=== PATIENT | female | born 1965 | race Caucasian/White ===

== ENCOUNTER 2016-12-19 14:05 | Inpatient (IN) | payer MEDICARE, MEDICAID ==
[~2016-12-19] VITALS: Ht 154.9 cm; Wt 81.4 kg
--- NOTE | ~2016-12-19 | DS ---
PATIENT'S NAME: NIKA CLIFTON [facility] AGE: 51 Y [address] ROOM: [id number] [place], [place] [address] LOCATION: GI ADMIT DATE: 12/19/2016 Discharge Summary DISCHARGE DATE: 12/24/2016 FAMILY PHYSICIAN: Alex Posada ATTENDING PHYSICIAN: Rigoberto Kraft DISCHARGE DIAGNOSES: 1. Left middle cerebral artery acute ischemic infarct. 2. Left internal carotid artery stenosis, 90%. 3. Patent foramen ovale. 4. Coronary artery disease. 5. Diabetes mellitus type 2. 6. Ischemic cardiomyopathy, ejection fraction of 35%. 7. Medication noncompliance. 8. Bipolar. HOSPITAL COURSE: Please refer to admitting history and physical as dictated by Dr. Kraft. Briefly, the patient was admitted to [facility], where she was found to have right-sided weakness and expressive aphasia. She was outside of the window for tPA. MRI was performed, which did show an acute ischemic infarct in the left MCA territory. CTA of her head and neck was performed, which revealed 90% stenosis of the left ICA. Dr. Caldwell did recommend CT scan and surgery in 2 weeks. Echo was performed, which had a positive bubble study, suggestive of PFO. Cardiology did follow her. She was noted to have hypertension. Her home Lopressor and Norvasc were resumed on the day of transfer to rehab. For her left MCA stroke, she was placed on aspirin, statin, and Plavix. Speech Therapy, Occupational Therapy, and Physical Therapy followed her throughout her stay. Her hemoglobin A1c was found to be 12 upon admit. Her insulin regimen was adjusted throughout her stay. With her history of bipolar, her home Seroquel was resumed. The patient gradually improved. Her expressive aphasia improved. On the day of discharge, her blood pressure was elevated in the morning, however, her blood pressure medications were resumed. It was 127/71 at the time of transfer. She was stable on room air at 96%. On 12/24/2016, it was felt as though she was stable to be discharged to [facility] Inpatient Rehab for further restorative cares. LABORATORY DATA: Sodium remained stable, potassium 3.2 to 3.6, BUN 9 to 13, creatinine 0.7 to 0.80. GFR greater than 60. Mag 1.9. Total cholesterol 175, triglycerides 224, HDL 36, and LDL 95. CPK 66, CK-MB less than 0.5, and troponin was elevated upon admit at 1.470. It trended down throughout her stay to 0.908. ProBNP 603. Hemoglobin A1c 12.7. TSH 3.1. WBC 6.7, hemoglobin 14.1, and hematocrit 41.5. Leukocytes 100, nitrites positive, wbc's 5 to 10, and bacteria many. PATIENT'S NAME: NIKA CLIFTON [facility] AGE: 51 Y [address] ROOM: [address] [address] LOCATION: GICU ADMIT DATE: 12/19/2016 Discharge Summary DISCHARGE DATE: 12/24/2016 FAMILY PHYSICIAN: Alex Posada ATTENDING PHYSICIAN: Rigoberto Kraft RADIOLOGY REPORT: CTA of the head and neck shows evolving ischemic infarct in the left MCA territory, high-grade stenosis greater than 90% at and immediately above the left internal carotid, occlusion of the right vertebral artery at the level of the skull. No aneurysm identified. Prominent left posterior communicating artery, likely reflecting collateral flow from the posterior circulation. MRI of the brain, large area of abnormal restricted diffusion at the left cerebral hemisphere involving portions of the left temporal and parietal lobe. Additional areas of abnormal or restricted diffusion at the basal ganglia in the left and medial left temporal lobe. DISCHARGE INSTRUCTIONS: The patient will be discharged to [facility] inpatient Rehab. Dr. Savage to follow. Follow up with Dr. Caldwell in [address] stroke [address] scan and further need for surgery. Diet ADA. Weightbearing as tolerated with assistance. PT, OT, and ST to evaluate and treat as indicated. Oxygen as needed to keep sats greater than 90%. Accu- Cheks a.c. and bedtime. Rehab potential is good. Discharge potential is good. DISCHARGE MEDICATIONS: 1. Aspirin 81 mg p.o. daily. 2. Lipitor 80 mg p.o. daily. 3. Plavix 75 mg p.o. daily. 4. NovoLog insulin 2 units per 15 g of carbs with meals. 5. Mild sliding scale NovoLog insulin. 6. Levemir 25 units subcu every morning. 7. Levemir 20 units subcu every evening. 8. Protonix 40 mg p.o. daily. 9. Tylenol 650 mg p.o. every 4 hours as needed for pain. 10. Dextrose 50%, 25 mL for hypoglycemia p.r.n. 11. Glucagon 1 mg subcu for hypoglycemia protocol. 12. Glucose 16 g p.o. for hypoglycemia p.r.n. 13. Glucophage 1000 mg p.o. twice daily with meals. 14. Seroquel 200 mg p.o. every night at bedtime for bipolar. 15. Vasotec 5 mg p.o. twice daily. 16. Lopressor 25 mg p.o. twice daily. Hold if systolic blood pressure is less than 100 or heart rate less than 60. 17. Norvasc 2.5 mg p.o. daily. Hold if systolic blood pressure is less than 110. 18. Nystatin powder apply under right breast three times daily. 19. Nicotine patch 21 mg transdermal daily p.r.n. Thank you for allowing us to participate in the care of this patient, as she PATIENT'S NAME: NIKA CLIFTON [facility] AGE: 51 Y [address] ROOM: [address] [address] LOCATION: [facility] ADMIT DATE: 12/19/2016 Discharge Summary DISCHARGE DATE: 12/24/2016 FAMILY PHYSICIAN: Alex Posada ATTENDING PHYSICIAN: Rigoberto Kraft has been hospitalized at [facility]. RIANA NUNEZ APRN FOR MD MEKA HUYNH/taj /[id number] d: 12/25/16249 t: 12/29/16 1653, DISCHARGE SUMMARY
--- NOTE | ~2016-12-19 | HP ---
PATIENT'S NAME: WICHITA [facility] AGE: 51 Y [address] ROOM: [place] [address] LOCATION: GICU ADMIT DATE: 12/19/2016 History & Physical DISCHARGE DATE: FAMILY PHYSICIAN: Alex Posada ATTENDING PHYSICIAN: LISA HWANG DATE OF SERVICE: CHIEF COMPLAINT: Acute stroke. HISTORY OF PRESENT ILLNESS: A 51-year-old lady with a past medical history of coronary artery disease with a recent drug-eluting stent to LAD as well as circumflex back in July, insulin-dependent diabetes mellitus, fibromyalgia, current smoker presented to the [place] [facility] with aphasia. Most of the history was obtained from the daughter who noticed right-sided weakness last night, but she was speaking at that time, but this morning she became aphasic and she was brought to the [place] [facility] where a CAT scan was done, which did show a left-sided MCA territory stroke. As the weakness started last night, she was outside window as well as she was on aspirin as well as Plavix for her drug-eluting stents. She was transferred here for further medical care. On my encounter, she is aphasic but appears to be alert and oriented. She is shaking her head yes or no to the answers appropriately. She denied having any chest pain. When asked about the onset of the weakness, she could not tell. She pointed that she is not able to speak, but she at this point does not have weakness in the arm or the leg. She denied any abdominal pain, any constipation, any diarrhea at this time. She also denied dizziness or headache. REVIEW OF SYSTEMS: All other systems reviewed and were negative except what is mentioned in the HPI. PAST MEDICAL HISTORY: Coronary artery disease with a drug-eluting stent to LAD in June and then circumflex in July; insulin-dependent diabetes mellitus; fibromyalgia; smoking; heart failure with preserved ejection fraction, last known ejection fraction 45%. MEDICATIONS: Please see MAR. FAMILY HISTORY: Family history positive for myocardial infarction in father who at the PATIENT'S NAME: WICHITA [facility] AGE: 51 Y [address] ROOM: [place] [address] LOCATION: GI ADMIT DATE: 12/19/2016 History & Physical DISCHARGE DATE: FAMILY PHYSICIAN: Alex Posada ATTENDING PHYSICIAN: LISA HWANG age of 57. Mother had diabetes. SOCIAL HISTORY: The patient is a half pack smoker for the last 25 years. 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 No alcohol or drug abuse. ALLERGIES: THE PATIENT IS ALLERGIC TO WELLBUTRIN AND CHANTIX. PHYSICAL EXAMINATION: VITAL SIGNS: Blood pressure 148/76, 16, 55, afebrile. GENERAL: No acute distress. Alert and oriented x3. HEENT: Head: Atraumatic, normocephalic. Eyes: Nonicteric. No pallor. Oropharynx: Moist mucous membranes. CARDIOVASCULAR: S1, S2. No murmurs, gallops, or rubs. LUNGS: Clear to auscultation bilaterally. ABDOMEN: Soft, nontender, nondistended. Bowel sounds are present. EXTREMITIES: No clubbing, cyanosis, or edema. NEURO: Right-sided facial droop is noted. Tongue deviation is noted. Right upper and lower extremity power is 4/5 as compared to 5/5 in left upper and lower extremity. MUSCULOSKELETAL: No muscle tenderness noted. No joint swelling noted. LYMPHATICS: No lymphangitis or adenopathy noted. ENDOCRINE: No cushingoid features present. No thyromegaly present. LABORATORY DATA: CAT scan from the outside facility as mentioned in the HPI showed left MCA territory stroke. Remarkable labs from the outside facility showed a troponin level of 1.734. EKG was done which showed normal sinus rhythm with Q-waves in anterior leads which were present on the previous EKG as well. No other significant acute ST- T wave changes were present. ASSESSMENT: 1. Acute ischemic stroke. 2. Elevated troponins. 3. History of coronary artery disease, status post drug-eluting stents in June as well as July. 4. Insulin-dependent diabetes mellitus. 5. Fibromyalgia. 6. Tobaccoism. PLAN: PATIENT'S NAME: NIKA CLIFTON [facility] AGE: 51 Y [address] ROOM: [id number] [place], [place] [address] LOCATION: [facility] ADMIT DATE: 12/19/2016 History & Physical DISCHARGE DATE: FAMILY PHYSICIAN: Alex Posada ATTENDING PHYSICIAN: LISA HWANG We are going to admit this patient to the Neuro Trauma Unit. Per Neurology recommendation, we are going to get MRI of the brain with and without contrast. We will also get a CT angiogram of the head and neck. Cardiology has been consulted for an echocardiography today and a possibility of transesophageal echocardiography given it could be very likely a cardioembolic in nature stroke. We are going to monitor the troponin elevation which is very likely related to the stroke rather than primary cardiac etiology. We are going to consult Cardiology for transesophageal echocardiography as well as to give the assessment on this troponin levels as well. Aspirin, Plavix, and statins will be resumed. N.p.o. until bedside swallowing evaluation is done. We will consult Inpatient Rehab. SCDs for DVT prophylaxis today, which can be switched to chemical prophylaxis per Neurology recommendations. We will reduce the home dose of insulin detemir given her n.p.o. status here and monitor blood glucose level and titrate insulin as necessary. The patient is full code. MD IRINEO BEYER/taj /[id number] D: 634 T: 829 HISTORY & PHYSICAL
--- NOTE | ~2016-12-19 | ECHO ---
Transthoracic Echocardiography Report (TTE) Demographics Patient Name NIKA CLIFTON Date of Study 12/19/2016 Patient Number [id number] Visit Number [id number] Date of 1965 Room Number G6228 Gender Female Number Age 51 year(s) Referring Swetha Liu Tap Grinder Mike Steele RDCS, Physician ALEXANDER RVT Abena Wilson MD Physician Interpreting Britton Hong Underground Mining Section Foreman Physician Ashleigh HILLMAN Supervising Ordering Abena Wilson MD/MLP Physician Nurse Stress Card Lacer Conclusions Contractility Score Summary At rest the following contractility abnormalities were noted: Hypokinesis of the Mid marcos-lateral, the Mid anterior, the Mid infero-septal, the Mid inferior, the Mid infero-lateral, the Apical inferior, the Apical lateral and the Basal anterior segments; Akinesis of the Mid marcos-septal, the Apical septal, the Basal marcos-septal, the Apical anterior and the Apical cap segments. Contractility of all other segments appeared normal. Summary The estimated left ventricular ejection fraction is 35%. Mild concentric left ventricular hypertrophy. Diastolic assessment reveals Grade I diastolic dysfunction. Informed consent was obtained, few bubble study was done, bubbles crossed to the left atrium suggesting a PFO . Mild mitral regurgitation by color Doppler. Procedure Type of Study TTE procedure:2D Echocardiogram. Procedure Date Date: 12/19/2016 Start: 03:59 PM Study Location: Inpatient Portable Technical Quality: Adequate visualization Indications:CVA. Appropriate Use Criteria: 9 Patient Status: STAT Contrast Medium: Bubble Study. HR: 73 bpm BP: 153/95 mmHg Allergies - Other:(Wellbutrin, Chantix). - Other:(buproprion, vareniciline). M-Mode/2D Measurements LV Diastolic Dimension: 4.46 cm LV Systolic Dimension: 3.57 cm LV Septum Diastolic: 1.25 cm LV PW Diastolic: 1.09 cm Cardiac Output: 4.59 l/min LA Dimension: 3.2 cm LVOT: 1.9 cm LVOT VTI: 22.2 cm RV Base: 2.67 cm LV Stroke volume: 62.91 ml RV Length: 5.34 cm TAPSE: 2.05 cm TDI-S': 22.8 cm/s Doppler Measurements AV Peak Velocity: 1.21 m/s MV Peak E-Wave: 0.83 m/s AV Peak Gradient: 5.86 mmHg MV Peak A-Wave: 1.03 m/s AV Mean Gradient: 3 mmHg MV E/A Ratio: 0.8 LVOT Peak Velocity: 1.11 m/s MV P1/2t: 84 msec AV P1/2t: 930 msec TR Gradient:11.83 mmHg PV Peak Velocity: 1.33 m/s Estimated RAP:5 mmHg PV Peak Gradient: 7.08 mmHg Estimated RVSP: 17 mmHg Estimated PASP: 16.83 mmHg E' Septal Velocity: 0.05 m/s A' Septal Velocity: 0.09 m/s E' Lateral Velocity: 0.04 m/s A' Lateral Velocity: 0.12 m/s Findings Left Ventricle Mild concentric left ventricular hypertrophy. The left ventricle is normal in size . Diastolic assessment reveals Grade I diastolic dysfunction. Right Ventricle Normal right ventricle structure and function. Left Atrium Normal left atrial size. Informed consent was obtained, bubble study was done, few bubbles crossed to the left atrium suggesting a PFO or ASD. Right Atrium Normal right atrial size. Mitral Valve Mild mitral regurgitation by color Doppler. Aortic Valve There is mild aortic regurgitation by color Doppler. Tricuspid Valve Trivial tricuspid regurgitation by color Doppler. Pulmonic Valve Normal pulmonic valve structure and function. Pericardial Effusion No evidence of pericardial effusion. Miscellaneous Visualized portions of the aortic root and ascending aorta appear normal in size. Pleural Effusion No evidence of pleural effusion. Contractility Score LV regional wall motion:(0-Non visualized 1-Normal 2-Hypokinesis 3-Akinesis 4-Dyskinesis 5-Aneurysm) Signature dtt: Dona Jarquin dtd: 12/19/16 1559 Physician Self Edit
--- NOTE | ~2016-12-19 | CON ---
PATIENT'S NAME: ELODIA [facility] AGE: 51 Y [address] ROOM: [id number] [place] [id number] LOCATION: GICU ADMIT DATE: 12/19/2016 Consultation DISCHARGE DATE: FAMILY PHYSICIAN: Alex Posada ATTENDING PHYSICIAN: LISA KRAFT Consult for Dr. Kraft. This 51-year-old lady is referred for rehab/GIRP evaluation, was admitted on 12/19/2016 with right-sided weakness and became aphasic next morning. Initially, she was weak on the right side the night before and in the morning it was noticed that she is unable to express herself, although she was always able to understand including now she can produce now some voice, but not words. She had a CT scan of initially at the local hospital which showed left-sided middle cerebral artery territory ischemia. MRI here on 12/19/2016 showed a large area of restricted diffusion with ischemic changes in the left cerebral hemisphere involving portions of the left temporal and parietal lobes. She is now alert, can comprehend, is unable to express, can produce a mumble. No words really. She is neglecting the right side, but not bad, can be drawn to attend to the right side. She feels that the right upper and lower extremity is not moving well and she is not very coordinated with them. Her attention span is good but she does not attend well to the right side. She is apraxic with her mouth and tongue. Tongue is moving however slightly slower on the right side. Soft palate is moving symmetrical. At the present time, she has very minimum facial droop on the right side, in the upper lip on the corner. She is with a muscle strength on the right side of about right upper extremity 3+, side lower extremity 4-, deep tender reflex slightly exaggerated on the right side, within normal limits on the left side of 1+. She can follow instructions without much difficulty. Vitals: Blood pressure 117/66, temperature 99.0, pulse 61, respiration rate 14. She is 5 feet 1 inch tall and weighs 84.7 kg. She is on the following medications: 1. Glucagon. 2. Dextrose. PATIENT'S NAME: ELODIA [facility] AGE: 51 Y [address] ROOM: [id number] [place], [place] [address] LOCATION: [facility] ADMIT DATE: 12/19/2016 Consultation DISCHARGE DATE: FAMILY PHYSICIAN: Alex Posada ATTENDING PHYSICIAN: LISA KRAFT 3. Glucose. 4. Insulin aspart mild scale. 5. Protonix. 6. Plavix. 7. Aspirin. 8. Lipitor. 9. Tylenol. 10. NaCl 0.9%. 11. Insulin detemir. 12. KCl. She has past history of coronary artery disease. Status post recent drug-eluting stenting of LAD and circumflex in July 2011. Insulin-dependent diabetes type 2. Fibromyalgia. Tobacco use. I feel this lady should be evaluated for swallowing and we will see how Speech will advise and will follow. She will be started on PT, OT, and speech. I feel that she will benefit from intensive rehabilitation of about 3 weeks, aiming to discharge on modified independence. All the above was explained to her in detail. She nodded understanding. I will take her when I have an opening. Thank you for this referral. MD ARACELI MAJOR/taj /[id number] d: 12/20/16 1145 t: 12/21/16 0749, CONSULTATION REPORT
--- NOTE | ~2016-12-19 | CON ---
PATIENT'S NAME: ELODIA [facility] AGE: 51 Y [address] ROOM: [id number] [place], [place] [address] LOCATION: GICU ADMIT DATE: 12/19/2016 Consultation DISCHARGE DATE: FAMILY PHYSICIAN: Alex Posada ATTENDING PHYSICIAN: LISA HWANG DATE OF CONSULTATION: 12/20/2016 REFERRING PHYSICIAN: GEOFFREY GREENE MD REASON FOR CARDIOLOGY CONSULT: Stroke with a positive bubble study, increased cardiac enzymes and history of coronary artery disease and stenting. HISTORY OF PRESENT ILLNESS: This patient normally follows cardiology care with Dr. Sivakumar Chaney. This is a 51-year-old female who presented to the [place] [facility] with right-sided weakness and aphasia. She was found to have a left-sided MCA territory stroke. Due to that she was transferred to [facility] for further evaluation and care. Full history review performed per chart review. The patient is only able to answer questions with yes and no nodding of her head, but she is alert and oriented x3. She has a previous history of coronary artery disease with her last drug-eluting stent placed to the LAD and circumflex earlier this year. She currently denies any pain and is up walking in the halls with physical therapy without difficulty. At the time of this consult, her weakness has resolved, but her aphasia continues. As of this dictation, she is being evaluated by Speech Therapy for swallow eval. PAST MEDICAL HISTORY: 1. Coronary artery disease. 2. Hypertension. 3. Hyperlipidemia. 4. Diabetic peripheral neuropathy. 5. Insulin-dependent diabetes mellitus. 6. Asthma. 7. Arthritis. 8. Bipolar disorder. 9. Chronic tobacco use. 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 PAST SURGICAL HISTORY: 1. Coronary artery stenting. 2. Appendectomy. 3. Cholecystectomy. PATIENT'S NAME: [place] [facility] AGE: 51 Y [address] ROOM: [id number] [place], [place] [address] LOCATION: GICU ADMIT DATE: 12/19/2016 Consultation DISCHARGE DATE: FAMILY PHYSICIAN: Alex Posada ATTENDING PHYSICIAN: LSIA HWANG 4. Carpal tunnel surgery. 5. Knee scope. 6. Tubal ligation. FAMILY HISTORY: The patient's mother had a history of lung and breast cancer. Her mother also had diabetes hypertension and chronic kidney disease. Her father due to a myocardial infarction at age of 57, but he also had diabetes. She has a brother with diabetes. SOCIAL HISTORY: The patient is a current daily cigarette smoker. She smokes a quarter of a pack per day and has done so for the last 25 years. There is no noted history of alcohol use. There is notation of recreational drug use in 2009, but no notation to the substance. CURRENT MEDICATIONS: 1. Protonix 40 mg IV daily. 2. Aspirin 81 mg p.o. daily. 3. Lipitor 80 mg p.o. daily. 4. Plavix 75 mg p.o. daily. 5. Levemir 10 units subcu twice daily. 6. NovoLog subcu on a mild sliding scale per every 6 hour Accu-Cheks. MEDICATION ALLERGIES: 1. Wellbutrin causing throat swelling. 2. Chantix causing throat swelling. REVIEW OF SYSTEMS: Pertinent positive review of systems as listed in the HPI. All other review of systems evaluated and negative with the patient able to perform yes and no nod with questioning. DIAGNOSTIC DATA: Her echocardiogram shows an ejection fraction of 35% with a possible positive bubble study. PHYSICAL EXAMINATION: VITAL SIGNS: Temp 99.0, pulse 61, respirations 14, blood pressure 117/66, O2 saturation 99% on room air. The patient weighs 84.7 kg. SKIN: [place], warm, and dry. EYES: Sclerae clear. No xanthelasmas. ENT: Oral mucosa is pink and moist. No jugular venous distention. No carotid bruits. CHEST: Respirations are even and unlabored. PATIENT'S NAME: NIKA CLIFTON [facility] AGE: 51 Y [address] ROOM: [id number], [place] [address] LOCATION: [facility] ADMIT DATE: 12/19/2016 Consultation DISCHARGE DATE: FAMILY PHYSICIAN: Alex Posada ATTENDING PHYSICIAN: LISA HWANG LUNGS: Clear to auscultation. HEART: Regular rate and rhythm. Normal S1, S2. No murmurs, rubs, or gallops. ABDOMEN: Soft nontender. MUSCULOSKELETAL: Gait is normal. EXTREMITIES: Peripheral pulses palpable. No clubbing, cyanosis, or edema. PSYCHIATRIC: Alert and oriented. She does answer questions with yes and no questions because she is currently aphasic. Mood and affect are appropriate. IMPRESSION AND PLAN: Per Dr. Jarquin: 1. Acute left middle cerebral artery territory ischemic stroke. 2. Positive bubble study with a possible patent foramen ovale. Questioning need for transesophageal echocardiogram. 3. Coronary artery disease with history of stenting earlier this year. She is currently on aspirin, Plavix, and statin and has no complaints of angina. Her troponin is currently trending down from 1.47 to 1.21. 4. Poorly controlled insulin-dependent diabetes mellitus. Her A1c is currently 12.7%. 5. Ischemic cardiomyopathy. 6. Chronic tobacco use. We will continue her on her guideline-directed medical therapies. We will leave the decision of transesophageal echocardiogram up to her primary dairy machine operator farmworker, Dr. Chaney, who will take over her care on Wednesday morning. Until then, we will continue to monitor, evaluate, and treat as appropriate. Thank you for this consult. Thank you for allowing [facility] to interact in the care of the patient. BALDEMAR JACINTO APRN FOR MD ORLIN RODRIGUEZ/taj /[id number] d: 12/20/16 1840 t: 12/28/16912, CONSULTATION REPORT
--- NOTE | ~2016-12-19 | CON ---
PATIENT'S NAME: [facility] AGE: 51 Y [address] ROOM: [id number] [place], [place] [address] LOCATION: GICU ADMIT DATE: 12/19/2016 Consultation DISCHARGE DATE: FAMILY PHYSICIAN: Alex Posada ATTENDING PHYSICIAN: LISA HWANG DATE OF CONSULTATION: 12/20/2016 REFERRING PHYSICIAN: GEOFFREY GREENE MD TIME SEEN: 1:00. HISTORY OF PRESENT ILLNESS: I was told about Ms. Calvillo as a transfer in the [place] [facility], where last night the patient was with her daughter and seemed to be reasonably well, but was possibly noted to have a bit of weakness on her right hand fumbling objects. The daughter really did not think very much of it. This morning, upon waking up at 10:00 a.m., the daughter went to see the patient and the patient was notably globally aphasic. She was unable to speak, extremely frustrated trying to get out any words, but was clearly unable to answer even questions or affirm any reasonable context of language. She was otherwise alert, but fidgety and she was taken to the emergency room, where a CAT scan was performed and showed evidence of an already existing acute left- sided MCA stroke. The patient was not a candidate for tPA based upon the finding of this hypodensity in the left brain significant for the stroke having already completed. The patient was then transferred over to our hospital with the knowledge that there is some evidence of a troponin elevation on her laboratory 1.47, possibly related to the acute stroke "as a troponin leak" or possibly in setting of an acute MD. The patient does have an extensive coronary artery disease history. She is status post a 5-vessel coronary artery catheterization, which showed significant disease of her left main as well as left circumflex coronaries and some more mild disease into the right main coronary. I believe she also had drug-eluting stents placed in May 2016, for which she was on dual anti-platelet agent including Plavix and aspirin with 1 medication in the past also being Brilinta, though I am not sure the patient is on this medication presently. The patient has significant medical issues beyond the coronary artery disease including poorly-controlled diabetes that upon her last admission showed a hemoglobin A1c in June of greater than 12. She is insulin dependent, but also in the recent past had been on oral medications. We do not know all her most recent glucose status. She is known to spill glucose into her urine with recent urinary tract infection back in June. Even, was noted to be hypothyroid in the sense of elevated TSH, but normal free T4. At the time of my seeing the patient upon transferring here, it is unfortunate she is globally aphasic. She could not read any of the words on the aphasic card nor can she identify any objects or PATIENT'S NAME: [facility] AGE: 51 Y [address] ROOM: [id number] [place], [place] [address] LOCATION: [facility] ADMIT DATE: 12/19/2016 Consultation DISCHARGE DATE: FAMILY PHYSICIAN: Alex Posada ATTENDING PHYSICIAN: LISA HWANG discuss any of the picture scenes. She seems to be moving both her upper and lower extremities appropriately. She was quite fidgety in the bed. She was able to ambulate to get around to walk on her own to go to the bathroom. She did not display any weakness. The daughter and another family member were in the room. I have discussed the nature of the acute aphasia associated with the left MCA stroke and her current workup for the etiology of the stroke certainly with leading indicators of stroke being history of poorly-controlled diabetes. However, with the nature of the fairly large area of this left MCA stroke into the left frontotemporal region, a cardioembolic etiology is also possible. REVIEW OF SYSTEMS: The patient presents today again with an aphasia, but no significant motor deficits. She had the apparent stroke last night to start of the stroke with some right-sided fumbling of her hand noted by her daughter. By the morning time, she presented with full global aphasia. TPA could not be given due to this completed stroke. Cardiac barriga, she has significant coronary artery vessel disease. We will try to continue to test troponin I levels to see if this represents a setting of an acute MD in the setting of the patient's stroke versus a troponin leak in the setting of a large stroke. Last echocardiogram revealed a diminished ejection fraction. Likely, we will have to re-evaluate the echocardiogram and possibly consider anticoagulation if the cardiac issue is a potential source for embolic stroke. We see no evidence that the patient has any other any arrhythmia presently. MEDICATIONS: Home medications included alprazolam 1 mg 3 times a day p.r.n. She had a prescription also for: 1. Oxycodone 10 mg 1 tablet 3 times a day p.r.n. pain. 2. Amlodipine 2.5 mg at bedtime. 3. Metoprolol 25-mg tablet 1-1/2 tablets twice a day. 4. Cyclobenzaprine 10-mg tablets 3 times a day p.r.n. pain. 5. Ritalin 20-mg tablet 2 tablets twice a day. 6. Plavix 75 mg once daily. 7. NovoLog FlexPen 100 units per sliding scale subcutaneously at meals and at bedtime. 8. Levemir 100 units/mL, 50 units daily. 9. Jardiance 10 mg 1 tablet p.o. daily. 10. Seroquel 200-mg tablet at bedtime. 11. Atorvastatin 80 mg p.o. daily. 12. Glipizide 5 mg twice a day. 13. Enalapril 2.5 mg daily. 14. Ferrous sulfate 325 mg 2 times daily. 15. Aspirin 81 mg daily. 16. Metformin 1000 mg 2 times daily. PATIENT'S NAME: [facility] AGE: 51 Y [address] ROOM: [place] [address] LOCATION: [facility] ADMIT DATE: 12/19/2016 Consultation DISCHARGE DATE: FAMILY PHYSICIAN: Alex Posada ATTENDING PHYSICIAN: LISA HWANG Please note that many of these medications are either on hold here in the hospital or being re-evaluated. FAMILY HISTORY: Is significant for coronary artery disease with an MD in her father, who at young age of 55. Mother had diabetes. SOCIAL HISTORY: The patient apparently continues to smoke cigarettes. She also abuses methamphetamines, though this was not questioned whether this is a present issue. No current alcohol use. ALLERGIES: TO WELLBUTRIN AND CHANTIX LISTED HERE. PHYSICAL EXAMINATION: NEURO: The patient is alerting, unable to speak, unable to answer questions. She is able to walk around. She is able to nod in answers and seems to understand some basic commands. No voluntary speech presently. Cranial nerves 2 through 12 was intact. Her motor exam revealed grossly 5/5 power in the upper extremity on the left. It was a bit of a pronator drift on the right, but nearly 4+/5 power in the right hand, not significantly obviously weak. In the lower extremities, I did not appreciate any weakness as this patient was easily ambulating without any limp. Sensory exam appears to be grossly intact, as she withdraws to pain. As noted, the patient ambulates with a narrow-based gait. She has negative Romberg. IMPRESSION: Unfortunate stroke in this patient, who has multiple stroke risk factors including likely a diminished ejection fraction of the heart, which may set her up for embolic stroke either in the setting of a myocardial infarction or due to some ischemic cardiomyopathy. We will have to discuss with Cardiology the possibility if this patient presented here with evidence for a new myocardial infarction. The EKG did not indicate any ST changes and does show Q- waves significant for prior myocardial infarction. The elevation in troponin can be seen in acute strokes and may not be coronary related. Currently has poorly-controlled diabetes based upon her labs within the last 6 months on recent admission. I do not subsume that the patient has improved her glucose control. Currently, her smoking history is a horrible thing if she continues to do this both with her advanced coronary disease and her diabetes. She is on dual anti-platelet agents including Plavix and aspirin, which she could certainly continue currently. The issue of anticoagulation may have to be discussed based upon this fairly large territory stroke by the way of MRI, which may not be necessarily associated with a diabetic smoking risk, maybe PATIENT'S NAME: [facility] AGE: 51 Y [address] ROOM: [place] [address] LOCATION: [facility] ADMIT DATE: 12/19/2016 Consultation DISCHARGE DATE: FAMILY PHYSICIAN: Alex Posada ATTENDING PHYSICIAN: LISA HWANG cardioembolic. Continue to discuss the case with the hospitalist during the patient's stay here in the hospital. MD HOANG DE LEÓN/taj /[id number] d: 12/20/16 0142 t: 12/23/16 1140, CONSULTATION REPORT
[~2016-12-19 14:05] MED LIST: ADVIL200 MG PO; ASPIRIN LO-DOSE81 MG PO; BRILINTA90 MG PO; DITROPAN5 MG PO; FEOSOL325 MG PO; FLEXERIL10 MG PO; GLUCOPHAGE1000 MG PO; GLUCOTROL5 MG PO; LEVEMIR FL100 UNIT/1 SUB-Q; LIPITOR80 MG PO; LOPRESSOR25 MG PO; MACROBID100 MG PO; NICODERM CQ1 EAC1 TOP; NORVASC2.5 MG PO; NOVOLOG FL100 UNIT/1 SUB-Q; OXYCODONE HCL E10 MG PO; PRINIVIL OR ZES10 MG PO; PROAIR HFA8.5 GM INH; RITALIN 20 MG PO; SEROQUEL100 MG PO; TYLENOL325 MG PO; ULTRAM50 MG PO; VASOTEC5 MG PO; XANAX1 MG PO
[2016-12-19 17:01] LABS: CREATININE 0.9 mg/dL (0.5-1.1)
[2016-12-19 17:04] LABS: ESTIMATED GFR (MDRD EQUATION) > 60
[2016-12-20 04:08] LABS: BASOPHIL # 0.1 K/uL (0.0-0.2); BASOPHIL % 0.7 %; EOSINOPHIL # 0.1 K/uL (0.0-0.5); EOSINOPHIL % 1.4 %; HEMATOCRIT 41.4 % (33.0-46.0); HEMOGLOBIN 14.5 g/dL (10.0-15.0); IMMATURE GRANULOCYTE % 0.2 %; LYMPHOCYTE # 2.6 K/uL (0.8-4.0); LYMPHOCYTE % 29.9 %; MCH 29.5 pg (27.0-34.0); MCV 84.3 fl (83.0-98.0); MONOCYTE # 0.8 K/uL (0.0-1.0); MONOCYTE % 9.1 %; MPV 10.2 fl (9.4-12.4); NEUTROPHIL # (ANC) 5.1 K/uL (1.8-7.8); NEUTROPHIL % 58.7 %; NRBC % 0 /100WBC (0-0.00); PLATELET COUNT 330 K/uL (150-450); RBC 4.91 M/uL (3.50-5.50); RDW-CV 13.7 % (11.9-14.6); WBC 8.7 K/uL (4.0-11.0)
[2016-12-20 04:17] LABS: ANION GAP 10.2 (10.0-19.0); BLOOD UREA NITROGEN 13 mg/dL (6-24); CALCIUM 7.9 mg/dL (8.5-10.5); CHLORIDE 106 mMol/L (96-110); CO2 26 mMol/L (22-32); CREATININE 0.7 mg/dL (0.5-1.1); ESTIMATED GFR (MDRD EQUATION) > 60; POTASSIUM 3.2 mMol/L (3.7-5.1); SODIUM 139 mMol/L (135-145)
[2016-12-20 04:18] LABS: CPK 66 IU/L (21-215)
[2016-12-20 18:36] LABS: BILIRUBIN URINE NEGATIVE (NEGATIVE); BLOOD URINE NEGATIVE /UL (NEGATIVE); COLOR URINE YELLOW (YELLOW); GLUCOSE URINE 250 mg/dL (NEGATIVE); KETONE URINE 5 mg/dL (NEGATIVE); LEUKOCYTES URINE 100 /UL (NEGATIVE); NITRITE URINE POSITIVE (NEGATIVE); PROTEIN URINE NEGATIVE (NEGATIVE); SPEC GRAVITY URINE 1.015 (1.003-1.035); TURBIDITY URINE 2+ (CLEAR); UROBILINOGEN URINE NORMAL (NORMAL)
[2016-12-20 18:47] LABS: BACTERIA URINE MANY (NEGATIVE); EPITHELIAL URINE 20-50 #/HPF (NEGATIVE); RBC URINE 0-2 #/HPF (NEGATIVE)
[2016-12-21 06:00] LABS: BASOPHIL % 0.6 %; EOSINOPHIL # 0.1 K/uL (0.0-0.5); EOSINOPHIL % 1.6 %; HEMATOCRIT 41.5 % (33.0-46.0); HEMOGLOBIN 14.1 g/dL (10.0-15.0); IMMATURE GRANULOCYTE % 0.3 %; LYMPHOCYTE # 1.9 K/uL (0.8-4.0); LYMPHOCYTE % 28.4 %; MCH 29.1 pg (27.0-34.0); MCV 85.6 fl (83.0-98.0); MONOCYTE # 0.7 K/uL (0.0-1.0); NEUTROPHIL % 59.1 %; NRBC % 0 /100WBC (0-0.00); PLATELET COUNT 282 K/uL (150-450); RBC 4.85 M/uL (3.50-5.50); RDW-CV 13.8 % (11.9-14.6); WBC 6.7 K/uL (4.0-11.0)
[2016-12-21 06:16] LABS: ANION GAP 11.4 (10.0-19.0); BLOOD UREA NITROGEN 9 mg/dL (6-24); CALCIUM 7.8 mg/dL (8.5-10.5); CHLORIDE 109 mMol/L (96-110); CO2 21 mMol/L (22-32); CREATININE 0.7 mg/dL (0.5-1.1); ESTIMATED GFR (MDRD EQUATION) > 60; POTASSIUM 3.4 mMol/L (3.7-5.1); SODIUM 138 mMol/L (135-145)
[2016-12-21] MEDS ORDERED: PLAVIX75 MG PO (10:38)
[2016-12-21] MEDS ORDERED: RITALIN 20 MG PO (10:38)
[2016-12-21] MEDS ORDERED: FLEXERIL10 MG PO (10:38)
[2016-12-22 05:36] LABS: ALBUMIN 2.8 gm/dL (3.5-5.0); ANION GAP 10.6 (10.0-19.0); BLOOD UREA NITROGEN 12 mg/dL (6-24); CALCIUM 8.3 mg/dL (8.5-10.5); CHLORIDE 108 mMol/L (96-110); CO2 25 mMol/L (22-32); CREATININE 0.8 mg/dL (0.5-1.1); ESTIMATED GFR (MDRD EQUATION) > 60; MAGNESIUM 1.9 mg/dL (1.8-2.6); PHOSPHORUS 3.7 mg/dL (2.5-4.9); POTASSIUM 3.6 mMol/L (3.7-5.1); SODIUM 140 mMol/L (135-145)
== END 2016-12-24 09:59 | DRG 65 ==
LOC: GICU 14:43
PROVIDERS: Internal Medicine; Nurse Practitioner Acute Care; ADMIT Internal Medicine
DX: I63.9 Cerebral infarction, unspecified (principal); I50.30 Unspecified diastolic (congestive) heart failure; E11.40 Type 2 diabetes mellitus with diabetic neuropathy, unspecified; R78.81 Bacteremia; I11.0 Hypertensive heart disease with heart failure; G81.91 Hemiplegia, unspecified affecting right dominant side; Q21.1 Atrial septal defect; I25.10 Atherosclerotic heart disease of native coronary artery without angina pectoris; Z95.5 Presence of coronary angioplasty implant and graft; M79.7 Fibromyalgia; R47.01 Aphasia; Z79.4 Long term (current) use of insulin; F17.210 Nicotine dependence, cigarettes, uncomplicated; Z79.82 Long term (current) use of aspirin; Z79.02 Long term (current) use of antithrombotics/antiplatelets; E78.5 Hyperlipidemia, unspecified; J45.909 Unspecified asthma, uncomplicated; F31.9 Bipolar disorder, unspecified; I25.5 Ischemic cardiomyopathy; I65.22 Occlusion and stenosis of left carotid artery; Z91.19 Patient's noncompliance with other medical treatment and regimen
CPT/HCPCS: A9577; C9113; J0696; J3480; J7030; J7040; J7050; Q9967

== ENCOUNTER 2016-12-24 10:01 | Inpatient (IN) | payer MEDICARE, MEDICAID ==
[~2016-12-24] VITALS: Ht 154.9 cm; Wt 84.8 kg
--- NOTE | ~2016-12-24 | HP ---
PATIENT'S NAME: NIKA CLIFTON [facility] AGE: 51 Y [address] ROOM: [facility] [place] [address] LOCATION: [facility] ADMIT DATE: 12/24/2016 History & Physical DISCHARGE DATE: FAMILY PHYSICIAN: Alex Posada ATTENDING PHYSICIAN: Maico Savage DATE OF SERVICE: HISTORY OF PRESENT ILLNESS: This 51-year-old lady is admitted for continuous medical treatment and intensive rehabilitation to rehab unit on 12/24/2016. 1. Unstable gait. 2. Dependent in activities of daily self-care. 3. Status post right-sided weakness with expressive aphasia, now improving, with left cerebral ischemic stroke and risk of falling. On admission, her vitals were as follows: Blood pressure 187/96, temperature 97.4, pulse 83, and respiration rate 12. She stands 5 feet 1 inch tall and weighs 81.4. She is, at the present time, put on intensive PT, OT, and speech 3 hours per day, 15 hours per week. I saw this lady on initial evaluation on 12/20 and recommended about 2 to 3 weeks of intensive rehabilitation. On reevaluation on 12/24, I recommend 2 weeks of intensive rehabilitation and then discharge to home [facility]. PAST MEDICAL HISTORY: She is, at the present time, with a past history of followin. History of coronary artery disease with drug-eluting stenting to left anterior descending artery in June and then circumflex in July. 2. Diabetes, insulin dependent. 3. Fibromyalgia. 4. Tobacco use, per history. 5. Congestive heart failure. Preserved ejection fraction, last time about 45%. 6. Hypertension. 7. Dyslipidemia. 8. Neuropathy. 9. Asthma. 10. Osteoarthritis. 11. Bipolar disorder. 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 13. Status post cholecystectomy and appendectomy. PATIENT'S NAME: ELODIA LUZ [facility] AGE: 51 Y [address] ROOM: [place] [address] LOCATION: [facility] ADMIT DATE: 12/24/2016 History & Physical DISCHARGE DATE: FAMILY PHYSICIAN: Alex Posada ATTENDING PHYSICIAN: Maico Savage 14. Status post carpal tunnel release. 15. Status post knee scope. 16. Tubal ligation. MEDICATIONS: She is, at the present time, on the following medications: 1. Aspirin 81 mg p.o. daily. 2. Lipitor 80 mg p.o. daily. 3. Plavix 75 mg p.o. daily. 4. NovoLog 2 units per 15 g carb subcu 3 times daily with meals. 5. NovoLog insulin mild scale per protocol. 6. Levemir 25 units subcu every morning. 7. Insulin detemir 20 units subcu every evening. 8. Protonix 40 mg p.o. daily. 9. Tylenol 650 q.6 hours, do not exceed acetaminophen 4 g q.24 hours. 10. Dextrose 50% 25 mL IV for hypoglycemia p.r.n. as needed. 11. Glucagon 1 mg subcu for hypoglycemia p.r.n. as needed. 12. Glucose 16 g p.o. for hypoglycemia as needed. 13. Glucophage 1000 mg p.o. twice daily. 14. Seroquel 200 mg p.o. at bedtime. 15. Vasotec 5 mg p.o. twice daily. 16. Lopressor 25 mg p.o. b.i.d. 17. Norvasc 2.5 mg p.o. daily, hold if systolic blood pressure below 110. 18. Nystatin powder, apply to the right breast 3 times daily under the breast. 19. Nicotine patch 25 transdermal p.m. daily. PHYSICAL EXAMINATION: On 12/25, her vitals were as follows: Blood pressure 140/80, temperature 98.4, pulse 78, and respiration rate 16. Her Accu-Chek in the morning at 0727 hours was 201, ranging between 230 to 123. LABORATORY DATA: CBC: White BC 7.2, RBC 4.49, hemoglobin 13.3, hematocrit 39.2, and platelets 246. CMS: Sodium 140, potassium 3.4, chloride 105, CO2 of 26, BUN 18, creatinine 0.9, and glucose 184. Prealbumin 23. ASSESSMENT AND PLAN: She can ambulate at the present time fairly well up to 3 minutes x2 with bent forward; however, she is starting to talk better at the present time. PATIENT'S NAME: NIKA CLIFTON [facility] AGE: 51 Y [address] ROOM: [place] [address] LOCATION: [facility] ADMIT DATE: 12/24/2016 History & Physical DISCHARGE DATE: FAMILY PHYSICIAN: Alex Posada ATTENDING PHYSICIAN: Maico Savage We will put on intensive PT, OT, and speech 3 hours per day, 15 hours per week for the coming 2 weeks or so, aiming to discharge on modified independence. Her Accu-Cheks will be checked in a.c. and h.s. We will keep on hospitalist, neurologist, and Dr. Sivakumar Chaney to follow as necessary. All the above was explained to her, and she verbalized understanding and agreement. MD ARACELI MAJOR/taj /[id number] D: [id number] T: [id number] HISTORY & PHYSICAL
--- NOTE | ~2016-12-24 | CON ---
PATIENT'S NAME: NIKA CLIFTON [facility] AGE: 51 Y [address] ROOM: [id number] [place], [place] [address] LOCATION: [facility] ADMIT DATE: 12/24/2016 Consultation DISCHARGE DATE: 01/01/2017 FAMILY PHYSICIAN: Alex Posada ATTENDING PHYSICIAN: Maico Patel DATE OF CONSULTATION: 12/30/2016 REFERRING PHYSICIAN: Gilberto Caldwell MD TEAM MEMBERS REPORTING: Include Dr. Patel; Hawa Mckeon, social worker clinical; Lauren Orourke, RN; Coral Howell, PT; Briana Crandall, PT; Aisha Rivero, OT; Betty Casas, Speech Therapy; Brittney Ruiz, therapeutic recreation; and Sister Maryam James, Pastoral Care. Also present was Shane from Pharmacy. CURRENT STATUS: Zenia Gardner is a 51-year-old woman, admitted to our inpatient rehabilitation unit following a CVA with expressive aphasia. She is currently continent of bowel and bladder. She does have redness under her right breast. She is on a consistent carbohydrate diet. Prealbumin is 23. She is currently within normal limits and at low nutritional risk. The patient can complete all of her transfers independently. She can walk 600 feet with no assistive device independently. She can climb 12 stairs with 1 railing at mod I. She has met 7/10 long-term PT goals. The patient can dress her upper and lower body at mod I; grooming, mod I; bathing, standby; toilet and shower transfers, mod I; toileting, mod I; and home management tasks, standby assistance. The patient's comprehension is at [id number] assistance. Language and expression, [id number] assistance. Memory and problem solving, standby; swallowing, mod I. No pastoral concerns at this time. The patient continues on Seroquel prior to going to bed at night. DISCHARGE PLAN: The patient is receiving 3 hours of PT, OT, and speech Wednesday through Wednesday. The patient has daily rehabilitation, nursing, and physiatry involvement as well as therapeutic recreational services. The patient has shown functional improvement and is progressing. Please see her plan of care for specific goals. Plan is for patient to discharge on January 01, 2017. The patient will go to acute care for a carotid endarterectomy and then will discharge to home with her daughter at that point. The patient is planning to go to her daughter's home in [place]. HAWA MCKEON FOR MAICO PATEL MD PATIENT'S NAME: NIKA CLIFTON [facility] AGE: 51 Y [address] ROOM: [place] [address] LOCATION: [facility] ADMIT DATE: 12/24/2016 Consultation DISCHARGE DATE: 01/01/2017 FAMILY PHYSICIAN: Alex Posada ATTENDING PHYSICIAN: Maico Patel TD/taj /[id number] d: 01/17/17 1628 t: 01/29/17 1137, CONSULTATION REPORT
--- NOTE | ~2016-12-24 | DS ---
PATIENT'S NAME: NIKA CLIFTON [facility] AGE: 51 Y [address] ROOM: [id number] [place], [place] [address] LOCATION: [facility] ADMIT DATE: 12/24/2016 Discharge Summary DISCHARGE DATE: 01/01/2017 FAMILY PHYSICIAN: Alex Posada ATTENDING PHYSICIAN: Maico Savage [facility] COURSE: This 51-year-old lady was admitted to rehab unit at [facility] on 12/24/2016, and will be discharged tomorrow, that is, on 01/01/2017, to go to OR under Dr. Caldwell for a left carotid endarterectomy. She had right-sided weakness secondary to CVA with aphasia. She will continue on outpatient PT, OT, and Speech 3 times per week for the coming 4 weeks, and a script has been given to her. She should not drive and/or operate any mechanical device until she is evaluated. She is on the following medications, continuation of medications, and changing of medications per Dr. Caldwell. She is on the following medications: 1. Norvasc 2.5 mg p.o. daily. 2. Aspirin 81 mg p.o. daily. 3. Lipitor 80 mg p.o. daily. 4. Plavix 75 mg p.o. daily. 5. Vasotec 5 mg p.o. twice daily. 6. NovoLog insulin 2 units per 15 g carb subcu 3 times daily. 7. NovoLog insulin mild scale per protocol. 8. Levemir 25 units subcu in the morning. 9. Levemir 20 units subcu at bedtime. 10. Glucophage 1000 mg twice daily. 11. Lopressor 25 mg p.o. twice daily, hold if systolic blood pressure below 100. 12. NicoDerm 14 mg transdermal for 2 weeks, then 7 mg for 2 weeks, and then discontinue. FINAL DIAGNOSES: 1. Unstable gait. 2. Dependent in activities of daily self-care. 3. Right-sided weakness secondary to cerebrovascular accident, ischemic in character. 4. Left carotid stenosis. Will have left carotid endarterectomy on 01/[address] Caldwell. 5. Hypertension. 6. Fibromyalgia. 7. History of coronary artery disease with drug-eluting stenting to the left anterior descending artery in June and circumflex in July. 8. Diabetes, insulin dependent. PATIENT'S NAME: NIKA CLIFTON [facility] AGE: 51 Y [address] ROOM: [address] [place] [address] LOCATION: [facility] ADMIT DATE: 12/24/2016 Discharge Summary DISCHARGE DATE: 01/01/2017 FAMILY PHYSICIAN: Alex Posada ATTENDING PHYSICIAN: Maico Savage 9. Tobacco use, per history. 10. Congestive heart failure. 11. Dyslipidemia. 12. Neuropathy. 13. Asthma. 14. Osteoarthritis. 15. Bipolar disorder. 16. History of Jane palsy. Added medications are: 1. Nystatin 15 g powder apply under right breast topical 3 times daily. 2. Protonix 40 mg p.o. daily. 3. Seroquel 200 mg at bedtime. 4. Tylenol 650 q.6 hours, do not exceed acetaminophen 4 g q.24 hours, #36. 5. Xanax 1 mg twice daily as needed p.r.n. 6. Dulcolax suppository 10 mg rectally p.r.n. 7. Dextrose 50% 25 mL IV for hypoglycemia p.r.n. 8. Glucagon 1 mg subcu for hypoglycemia p.r.n. 9. Glucose 16 g p.o. for hypoglycemia p.r.n. 10. Milk of magnesia 30 mL p.r.n. 11. Ultram 50 mg q.3 hours as needed. The patient is not to drive and/or operate any mechanical device until she is re-evaluated. I will see her in 4 weeks after discharge. I have given her a script for PT, OT, and speech 3 times per week for the coming 4 weeks. I will see her thereafter. All her medication renewal and/or change per her family physician please, and the medication that she is on discharged to go to acute site after endarterectomy per Dr. Caldwell. Any change of medication is again under Dr. Caldwell's decision. All the above was explained to her in detail. She verbalized understanding and agreement. MD ARACELI MAJOR/taj /[id number] d: 01/01/17 1109 t: 01/02/17 0753, DISCHARGE SUMMARY
[~2016-12-24 10:01] MED LIST changes: +PLAVIX75 MG PO
--- NOTE | 2016-12-24 16:54 | NUR ---
Significant Event: Patient admitted from [facility] at 0955. Up with SBA and gait belt. Confused. Impulsive. Patient very angry upon admission to the floor. Patient angry that the nurse took her home perscription of xanax out of her room. Also a knife was found and sent down to security. Patient felt her rights had been violated. Admitted for CVA with R) deficit. Patient also has 90% occluded L) carotid artery. Dr Hickman wants to see her in two weeks for that. Hx of meth use 10 years ago. Current smoker. Patient was caught smoking in the bathroom of previous floor. Diabetic. Accuchecks ACHS. Carb count. Mechanical soft diet. Thin liquids. Last BM . Incontinent but refuses briefs. Redness under right breast. Nystatin to be applied. Aphasia. Lives with daughter. Has been some family drama between daughter, son, and patient. Patient on phone with daughter twice today and yelling at her over the phone. Lissette has made several comments to daughter that she is just going to leave this place. Follow up:
--- NOTE | 2016-12-25 04:30 | NUR ---
Significant Event: Patient is alert and oriented x 3. Aphasic. Right sided weakness noted. Impulsive, alarms on at all times. VSS on room air. Up with stand by assist. Reddened area under right breast, receives Nystatin. Incontinent at times, but refuses to wear briefs. ACHS accuchecks. Denies any pain. Agitated at the beginning of the shift, but patient has been resting well the rest of the night. Patient and son went outside with nurse aide x 1 this shift. Left forearm IV, saline locked. Follow up:
[2016-12-25 05:01] LABS: BASOPHIL # 0.1 K/uL (0.0-0.2); BASOPHIL % 0.7 %; EOSINOPHIL # 0.2 K/uL (0.0-0.5); EOSINOPHIL % 2.9 %; HEMATOCRIT 39.2 % (33.0-46.0); HEMOGLOBIN 13.3 g/dL (10.0-15.0); IMMATURE GRANULOCYTE % 0.1 %; LYMPHOCYTE # 2.9 K/uL (0.8-4.0); LYMPHOCYTE % 40.1 %; MCH 29.6 pg (27.0-34.0); MCHC 33.9 gm/dL (32.0-36.5); MCV 87.3 fl (83.0-98.0); MONOCYTE # 0.7 K/uL (0.0-1.0); MONOCYTE % 9.4 %; MPV 10.6 fl (9.4-12.4); NEUTROPHIL # (ANC) 3.4 K/uL (1.8-7.8); NEUTROPHIL % 46.8 %; NRBC % 0 /100WBC (0-0.00); PLATELET COUNT 246 K/uL (150-450); RBC 4.49 M/uL (3.50-5.50); WBC 7.2 K/uL (4.0-11.0)
[2016-12-25 05:19] LABS: ALBUMIN 2.7 gm/dL (3.5-5.0); ANION GAP 12.4 (10.0-19.0); CALCIUM 7.9 mg/dL (8.5-10.5); CREATININE 0.9 mg/dL (0.5-1.1); POTASSIUM 3.4 mMol/L (3.7-5.1); TOTAL BILIRUBIN 0.4 mg/dL (0.0-1.5); TOTAL PROTEIN 6.1 g/dL (6.0-8.4)
--- NOTE | 2016-12-25 09:44 | NUR ---
CYCLOBENZAPR, QUETIAPINE, METHYLPHENIDATE, NITROGYLCERIN PILLS REMOVED FROM [facility] WITH NIGEL DUFF WITNESS REMOVAL AND SON FRANCISCO NOTIFIED OF REMOVAL. FRANCISCO WILL TAKE MEDICATIONS HOME WITH HIM. HAD ASKED [facility] TO REMOVE THEM AND SHE STATED SHE DIDN'T HAVE THEM. NIGHT NURSE REPORTED FROM PREVIOUS DAY NURSE THAT SHE HAD THEM. INFORMED [facility] PRIOR THAT WE DIDN'T WANT HER TO TAKE HER OWN MEDS. SHE STILL DENIED.
--- NOTE | 2016-12-25 14:55 | NUR ---
PT SCREENED D/T (+) MST. WT IS STABLE AND BMI IN OBESE RANGE. PO IS 100%. WILL ASSIST NEEDED.
--- NOTE | 2016-12-25 17:16 | NUR ---
Significant Event:Intermittently upset with family and staff. Been found talking on phone with children and yelling and swearing at them. has yelled at son in hospital. Participates in therapies. Refused shower today. Eating well. Insulin given for carb counts. No stool. VSS on RA. Is aphasic and impulsive. Needs coronary artery surgery in the future.
--- NOTE | 2016-12-26 04:31 | NUR ---
Significant Event: Patient is alert and oriented. VSS. Up SBA with GB. Right sided weakness is aphasic. Can be impulsive, moods change, get upset easily. Alarm for safety. Can be incontinent at times. No incontinence so far tonight. Accu checks AC&HS is on a carb count. Is a smoker and has a nicotine patch to her L) shoulder. Redness under right breast has nystatin powder for that. Saline lock to her L) FA flushes wel with no blood return. Takes meds whole with water. Here for strengthening, plans for surgery due to a 90% occluded L) carodid artery. Follow up: Need UA
--- NOTE | 2016-12-26 13:11 | NUR ---
Significant Event: PATIENT ORIENTED TO PERSON AND PLACE, EXPRESSIVE APHASIA. WE WORKED ON MAKING LISTS FOR HER DAUGHTER OF ITEMS TO BRING. HAS BEEN COOPERATIVE TODAY. NEW ORDER FOR ULTRAM FOR BILATERAL KNEE PAIN, HAS SEEMED TO HELP. ALSO RECEIVED PRN XANAX TODAY. PATIENT WAS HAPPY TO RECEIVE SHOWER THIS AM. NICOTINE PATCH TO LEFT UPPER ARM. VITALS STABLE ON ROOM AIR. STANDBY ASSIST, TOLERATES ACTIVITY WELL. SALINE LOCK TO LEFT FOREARM. ECCHYMOSIS TO ARMS, REDNESS TO LOWER BACK, ABRASION HEALED TO LEFT KNEE. NYSTATIN POWDER APPLIED UNDER BREASTS. ACHS ACCUCHECKS, LEVEMIR, AND CARB COUNT (WAS 116 AND 140 TODAY). FEEDS SELF WELL. MEDS WHOLE WITH WATER. Follow up:
--- NOTE | 2016-12-27 04:20 | NUR ---
Significant Event: Patient is alert and oriented to person and place. VSS. Has expressive aphasia. Right side weaker then the left. Up with SBA, does not call for assist. Has been cooperative with cares. Can become agitated at times. Is a smoker has a Nicotine patch to her left upper arm. Accu checks AC&HS and also is on a carb count and Levemir. Accu check last night was 85. Son adele her in food last night after her Accu check. Saline lock to left FA. Nystatin under her right breast. Takes meds whole in water. New order for Ultram if needed. Takes Xanax when needed had one at bedtime. Follow up:
--- NOTE | 2016-12-27 17:00 | NUR ---
Significant Event: Pt up in room with minimal assist. Pt gets upset with use of bed alarms. Pt refused to have them in use, nurse reaffirmed with pt safety measures and need for assist with activity. Pt rested most of the day. Pt takes meds whole with water. Pt doesn't follow ADA diet well. Accuchecks 182, 145. Nicotine patch rt shoulder. Xanax this am, denied pain, refused [facility] Follow up: safety, activity
[2016-12-27 23:53] LABS: BILIRUBIN URINE NEGATIVE (NEGATIVE); BLOOD URINE 150 /UL (NEGATIVE); COLOR URINE YELLOW (YELLOW); GLUCOSE URINE NEGATIVE (NEGATIVE); KETONE URINE NEGATIVE (NEGATIVE); LEUKOCYTES URINE 25 /UL (NEGATIVE); NITRITE URINE NEGATIVE (NEGATIVE); PROTEIN URINE NEGATIVE (NEGATIVE); TURBIDITY URINE CLEAR (CLEAR); UROBILINOGEN URINE NORMAL (NORMAL)
[2016-12-27 23:58] LABS: BACTERIA URINE FEW (NEGATIVE)
--- NOTE | 2016-12-28 04:32 | NUR ---
Significant Event: Patient alert and oriented to person and place. Has HTN. Expressive aphasia is a problem. Slight right side weakness. Gets anxious frustrated with hospital policies. Takes Xanax for anxiety. Patient is suppose to be up one assist with GB but refused to be alarmed during the day. Gets up ad thu in room. Will allow bed alarm on at night. No real issues with pain but has requested an Oxycontin stating she takes it at home. Ultram has been ordered. Does own cares in and tells nursing she is on her menses. Is a smoker has a nicotine patch tp right shoulder. Accu checks AC&HS. Last night was 126 is on SSI carb count and Levemir. Does not follow her ADA diet. Takes meds whole with water.
--- NOTE | 2016-12-28 16:09 | NUR ---
A&O-APHASIC/LIKES TO WRITE STUFF DOWN. SBA. R) SIDED WEAKNESS. SL L FA. ACHS WITH CARB COUNT. NEEDS L) CAROTID- NEEDS F/U WITH JC 01/04. TAKES MEDS WHOLE.
--- NOTE | 2016-12-29 03:29 | NUR ---
Significant Event: libia guadalupe at 2009 for anxiety per patient request. denies difficulty with vision. aphasic, will point or write things down at times.had 2 loose stools this deanne. accucheck 89 at hs. no ss insulin givne. had her doswe of levimir and an hs snack. having her menses. right side slightly weaker. Follow up:
--- NOTE | 2016-12-29 09:30 | NUR ---
D: Therapeutic Recreation Initial Assessment on the 12/29/16. I: Patient seen for 2 units at 932 to begin initial evaluation. Pt has dx of MCA ischemic infarct. R: Patient's current living situation and status: house Home entrance steps: 2 Living with: family Spouses name: divorce # of children: 3 Driving: yes, transportation maybe a problem Ambulating: I Equipment: N/A Hand Dominance: Right Arcgis Developer strength: R) side weakness Eye sight: glasses Reading ability: N/T Hearing: no problem Speech: aphasia Cognition: impaired Comprehension: fair Following directions: Initiating: yes Eye contact: Affect: COMMUNITY INVOLVEMENT: grocery shopping, out to eat LEISURE INTERESTS: watch TV, listen to music, word searches, had computer but stolen, pattern art, latch hook Patient is referred by medical staff for treatment and evaluation in the following areas: Community Skills, Functional Leisure Skills, Participation, Leisure Education/Behaviors, Family Education, Cognitive, Emotional. Information obtained: Interview, Chart Review, Observation, other. BARRIERS TO LEISURE: Social, Financial, Physical, Lifestyle (hx of tobacco use (1/2) pack a day, hx of depression (bipolar) Transportation, Leisure Skills. Patient determined to be: APPROPRIATE FOR THERAPEUTIC RECREATION ASSESSMENT. TREATMENT WILL INCLUDE: Community living skills training Functional leisure development Physical skills development Cognitive skills development Social skills development Leisure education Emotional/behavioral adaptation Family education Community resources/packet TARGET EQUIPMENT/INFORMATION: Parking Permit will need Community Resources Energy conservation in community setting Van/Service/Taxi Scrip Adapted Leisure Equipment Stress management/Relaxation techniques Functional car transfers Leisure Education Behaviors: Attitude, Awareness, Participation. Patient functional skills level and potential: Good, pt demonstrates good mobility with concerns for communication and coping. Patient oriented ot TR services on Rehab unit. Pt/family provided input into goals setting and plan of care. Pt's goal is to get own home. P: Target date set with personal goals established. Will continue with POC focusing on pt/family training and education. For additional information please see Nursing Data Base, PT, OT, CM, ST, initial assessments to [facility] and Interdisciplinary Assessments.
--- NOTE | 2016-12-29 12:49 | NUR ---
A-SCREENED D/T LOS; NEW ADMIT TO [facility] S/P CVA; APHASIC. R)SIDED WEAKNESS HT: 61 IN. ADMIT WT: 82.9 KG. CBW: 84.8 KG. BMI: 35.3 12/25 LABS REVIEWED; NO NEW LABS AVAILABLE. PREALB 23.0 MEDS: ULTRAM, LEVEMIR, PROTONIX, SEROQUEL, XANAX, NOVOLOG, PRN BOWEL MEDS DIET RX: CONSISTENT CARB. PO INTAKE 100% EST NUTR NEEDS: 8867-5816 KCALS (15-20 KCALS/KG) 72-96 GM PROTEIN (1.5-2.0 GM/KG) 1 ML FLUID/KCAL D-NOT AT NUTRITION RISK; NO NUTRITION DX IDENTIFIED I-CONTINUE W/CURRENT DIET RX M/E-ASSIST NEEDED
--- NOTE | 2016-12-29 13:35 | NUR ---
Significant Event: PATIENT ORIENTED TO PERSON AND PLACE, HAS EXPRESSIVE APHASIA. COOPERATIVE WITH CARES. ACHS ACCUCHECKS, SCHEDULED LEVEMIR, CARB COUNT, AND METFORMIN. PATIENT HAS A HARD TIME MAKING FOOD CHOICES THAT FIT INTO THE ADA DIET AND ALSO THE EXPRESSIVE APHASIA MAKES IT DIFFICULT. ACCUCHECKS WERE 161 AND 166 TODAY. UP STANDBY ASSIST. HAS BEEN CONTINENT OF BOWEL AND BLADDER. HAS MENSES CURRENTLY, MANAGES HYGIENE INDEPENDENTLY. PILLS WHOLE WITH WATER. HAD PRN XANAX BUT DENIES PAIN. VITALS STABLE ON ROOM AIR. Follow up:
--- NOTE | 2016-12-30 03:11 | NUR ---
Significant Event: XANAX 1 MG GIVEN FOR C/O ANXIETY. HAS EXPRESSIVE APHASIA. UP TO BATHROOM WITH 1 ASSIST. TAKES PILLS WHOLE WITH WATER. RT SIDE SLIGHTLY WEAKER. ACCUCHECK AT HS WAS 227, HAD 4 UNITS NOVOLOG PER SS AND ROUTINE LEVEMIR 20 UNITS. A/O X3. Follow up:
--- NOTE | 2016-12-30 15:20 | NUR ---
Significant Event: Alert and oriented to person and place. Expressive aphasia. Up with 1A gait belt. Denies pain. Accuchecks ACHS. 134 and 151 this shift. Carb count. Pills whole with water. Continent of bowel and bladder. Has menses currently. R) side slightly weaker. L) carotid endarterectomy scheduled for 01/01. NPO after midnight. Nicotine patch to left upper arm. Nystatin applied to redness under right breast. Cooperative with cares. Follow up:
--- NOTE | 2016-12-31 03:30 | NUR ---
Significant Event:A/O. SBA. R) sided weakness. ACHS. Glucose at HS 113 no sliding scale needed. Meds whole with iced tea. Nystatin under Right breast. Nicotene patch to L) arm. Anxious and lots of tears at times. Xanax given. Denies pain. Aphaisic. Alarms on. Call light in reach. Follow up:Surgery Wednesday. NPO night at midnight.
--- NOTE | 2016-12-31 15:30 | NUR ---
Significant Event: Alert and oriented to person and place. Denies pain. Up ad thu in room. Expressive aphasia. Accuchecks ACHS. No sliding scale needed this shift. Carb count. Pills whole with water. R) sided weakness. Needs to be NPO after midnight. Surgery tomorrow for L) carotid endarterectomy. Nicotine patch to R) upper arm. Nystatin applied under right breast. Very anxious about where she will go after she is dismissed from the hospital. Yelling at daughter over phone about arrangements. Alarms at all times. Impulsive Follow up:
--- NOTE | 2017-01-01 03:53 | NUR ---
Significant Event:A/O. Up ad thu in room. Some right sided weakness, moderate strength. ACHS accucchecks, no sliding scale required for 137 @ HS. Carb coverage with meals. Expressive aphaisia. NPO since midnight. Scheduled for L) carotid endarterectomy this morning @ 1230. Monitor for hypoglycemia. At 0800 give Metoprolol, Protonix and Xanax with sips of water per Dr. order (see chart). Call light in reach. Xanax and Tylenol at midnight for anxiety/general discomfort. Follow up:Daughter to arrive at 0800 to sign consent forms.
[2017-01-01 04:54] LABS: ALBUMIN 2.8 gm/dL (3.5-5.0); ANION GAP 10.7 (10.0-19.0); CALCIUM 8.3 mg/dL (8.5-10.5); CREATININE 0.8 mg/dL (0.5-1.1); PHOSPHORUS 4.1 mg/dL (2.5-4.9); POTASSIUM 3.7 mMol/L (3.7-5.1)
--- NOTE | 2017-01-01 09:58 | NUR ---
PATIENT SENT TO SURGERY AT 0900. UP AD ANAND IN ROOM, TRANSFERS WELL. ALERT AND ORIENTED BUT HAS EXPRESSIVE APHASIA. KIDS ARE AT BEDSIDE, DAUGHTER SIGNED CONSENTS. IV STARTED TO RIGHT AC, RUNNING D5. DENIES PAIN. XANAX, PROTONIX, AND LOPRESSOR GIVEN THIS AM ORDERED. AM ACCUCHECK WAS 119. ON MENSES CURRENTLY. COOPERATIVE WITH CARES. VITALS STABLE ON ROOM AIR. NPO SINCE MIDNIGHT.
[2017-01-02] MEDS ORDERED: LEVEMIR100 UNIT/1 SUB-Q (13:34)
[2017-01-02] MEDS ORDERED: NICODERM CQ1 EAC1 TRANS (13:40)
[2017-01-02] MEDS ORDERED: NYSTATIN1 EAC1 TOP (13:42)
[2017-01-02] MEDS ORDERED: PROTONIX40 MG PO (13:43)
[2017-01-02] MEDS ORDERED: NORCO 5-325 TA1 EACH PO (13:44)
--- NOTE | 2017-01-04 09:42 | NUR ---
[facility] Case Management Prefunctioning and Psycho-Social Initial Assessment for 12/24/16, Case Conference Note for 12/30/2016 and Discharge Note for 01/01/2017 D: Initial Crystal Report DeveloperElectronic Service Technician, Case Conference Note, and Discharge Note. I: Input from: patient, family, Dr. Savage, Dr. Kraft, Janelle Rascon ARBORIST CLIMBER, and Hawa Mckeon GAUNTLET PAIRER R: Reason for admission: Left CVA. Admission Date to [facility]: 12/24/2016 Admission Date to Hospital: 12/19/2016 Prior level of functioning: patient was independent with adl's and household prior to stroke. Prior living situation: one story house Financial resources/expectations: patient has Medicare and [facility] Medicaid. Resources used: walk-in shower Resources available: HHC, outpatient therapy, SNF, GROUP HOME, [facility], DME. Family support available: daughter Understands nature of health condition: yes Recognizes impact of health condition on lifestyle: yes Vocational/Educational: disabled Behavior/Emotional needs: cues for safety. Monitor for signs and symptoms of depression and anxiety. Legal concerns: none. Discharge goal: home with daughter. Assessment: Kendra is a 51 year old woman from [place], [place] admitted after a stroke. She has good family support. Patient's son would like patient to go to [place] with him, but she wants to stay in [place]. Team conference was held and plan is to d/c patient to acute care on 01/01/17 for a carotid endarterectomy. Then, she will d/c to home from there. No needs identified. Will call patient next week to see how she is doing post discharge. Orientation to the program and CM services completed with Kendra. Initial plan of care and estimated length of stay discussed, disclosure statement reviewed including patient assessment rights. P: Target date and individual goals established. Please see POC for details. For additional information please see Nursing Data Base, PT, OT, TR, ST, Initial assessments to [facility].
== END 2017-01-01 09:23 | disposition critical access hospital (66) | DRG 92 ==
LOC: GIRP 10:01
PROVIDERS: Physical Medicine & Rehabilitation; ADMIT Physical Medicine & Rehabilitation
DX: R26.81 Unsteadiness on feet (principal); I69.354 Hemiplegia and hemiparesis following cerebral infarction affecting left non-dominant side; E11.40 Type 2 diabetes mellitus with diabetic neuropathy, unspecified; I11.0 Hypertensive heart disease with heart failure; I50.9 Heart failure, unspecified; Z74.1 Need for assistance with personal care; Z91.81 History of falling; I69.320 Aphasia following cerebral infarction; I25.10 Atherosclerotic heart disease of native coronary artery without angina pectoris; Z79.4 Long term (current) use of insulin; M79.7 Fibromyalgia; Z87.891 Personal history of nicotine dependence; E78.5 Hyperlipidemia, unspecified; J45.909 Unspecified asthma, uncomplicated; M19.90 Unspecified osteoarthritis, unspecified site
CPT/HCPCS: J7042

== ENCOUNTER 2016-12-31 15:00 | Inpatient (IN) | payer MEDICARE, MEDICAID ==
[~2016-12-31] VITALS: Ht 154.9 cm; Wt 85.1 kg
--- NOTE | ~2016-12-31 | OR ---
PATIENT'S NAME: NIKA CLIFTON [facility] AGE: 51 Y [address] ROOM: [address] [address] LOCATION: GPCU ADMIT DATE: 01/01/2017 OR/Procedure Report DISCHARGE DATE: FAMILY PHYSICIAN: Alex Posada ATTENDING PHYSICIAN: GILBERTO CALDWELL SURGEON: Gilberto Caldwell MD LICENSING WORKER: DATE OF PROCEDURE: 01/01/2017 PREOPERATIVE DIAGNOSIS: Symptomatic left carotid stenosis. POSTOPERATIVE DIAGNOSIS: Symptomatic left carotid stenosis. PROCEDURE: Left carotid endarterectomy with bovine pericardial patch. BEHAVIORAL HEALTH THERAPIST: MACK Conner. ANESTHESIA: General. ESTIMATED BLOOD LOSS: 100 mL. OPERATIVE FINDINGS: Neurologically intact at the end of the case, high-grade nearly occlusive lesion of the left ICA. DESCRIPTION OF PROCEDURE: The patient was brought to the operating room, placed supine on the operating table, placed under general anesthesia, prepped and draped in a sterile manner. Preoperative time-out was performed. The patient received preoperative antibiotics. She had a placement of arterial line in the right groin and common femoral prior to procedure using ultrasound guidance because we were unable to do so in the radial arteries. The patient was then prepped and draped in a sterile manner. Preoperative time-out was performed. We made a standard incision along the anterior border of the sternocleidomastoid muscle on the left, transected the platysma, dissected the soft areolar tissue along the border of the muscle, then dissected out the internal jugular along its length in a 360-degree fashion. We then identified the facial vein, which was ligated and transected. We then dissected out the common, the external, the internal, and the superior thyroid. We placed a clip on the superior thyroid. We then gave 5000 units of heparin. We clamped proximally and distally on all the major arteries. We then removed the clamp from the internal. We performed a back pressure, which showed a systolic pressure in the 70s. No shunt was indicated. We made arteriotomy from the common to the internal. We then removed the plaque in its entirety, removing any small piece of debris. We then did a standard 6-0 bovine pericardial patch using 2 running Bryant sutures. Before completing anastomosis, we allowed for backbleeding from the internal as well as flushing from the common. We PATIENT'S NAME: NIKA CLIFTON [facility] AGE: 51 Y [address] ROOM: [place] [address] [facility] ADMIT DATE: 01/01/2017 OR/Procedure Report DISCHARGE DATE: FAMILY PHYSICIAN: Alex Posada ATTENDING PHYSICIAN: GILBERTO CALDWELL then completed anastomosis, removed the clamp from the external clip from the superior thyroid as well as the clamp from the common. We then waited 10 heartbeats and then opened the clamp from the internal. Flow was confirmed in all 3 vessels with the use of Doppler. Heparin was reversed. We used protamine. Deep layers were closed with 2-0 and 3-0 Vicryl. Skin was closed with running 4-0 Monocryl. The patient tolerated the procedure well and transferred to recovery room and up to the floor. MD MONICA PRYOR/taj /[id number] d: 01/02/17139 t: 01/11/17 181, OPERATIVE SUMMARY
--- NOTE | ~2016-12-31 | CON ---
PATIENT'S NAME: NIKA CLIFTON [facility] AGE: 51 Y [address] ROOM: [place] [address] LOCATION: GPCU ADMIT DATE: 01/01/2017 Consultation DISCHARGE DATE: 01/02/2017 FAMILY PHYSICIAN: Alex Posada ATTENDING PHYSICIAN: Gilberto Caldwell DATE OF CONSULTATION: 01/01/2017 REFERRING PHYSICIAN: Rigoberto Kraft MD CONSULTATION NOTE REASON FOR CONSULTATION: Medical management. HISTORY OF PRESENT ILLNESS: A 51-year-old lady with a past medical history of coronary artery disease who had a drug-eluting stent in July to LAD as well as circumflex and a recent acute ischemic stroke, and a diagnosis of internal carotid artery stenosis, was at the rehabilitation, recovering well. Because of the diagnosis of the internal carotid artery, Vascular Surgery was consulted and they took her to the operating room for left carotid endarterectomy where the stenosis was 90%. She is recovering well from this procedure. Today is postoperative day #1. She is complaining of some irritation in the throat from the intubation. Otherwise, she is not complaining of any pain. No headache. No trouble swallowing. No chest pain. No shortness of breath. No abdominal pain. No burning on urination. No constipation or diarrhea. REVIEW OF SYSTEMS: All other systems reviewed and were negative except what is mentioned in the HPI. PAST MEDICAL HISTORY: 1. Diabetes mellitus, type 2, insulin-dependent, brittle. 2. Ischemic cardiomyopathy with ejection fraction of 35%. 3. Bipolar disorder. 4. Coronary artery disease with drug-eluting stents. 5. Patent foramen ovale. 6. Recent left middle cerebral artery acute ischemic infarct. 7. Left internal carotid artery stenosis. CURRENT MEDICATIONS: 1. Insulin detemir 25 units q.a.m. 2. Clopidogrel 75. 3. Atorvastatin 80. 4. Aspirin 81. PATIENT'S NAME: ELODIA LUZ [facility] AGE: 51 Y [address] ROOM: [place] [address] LOCATION: GPCU ADMIT DATE: 01/01/2017 Consultation DISCHARGE DATE: 01/02/2017 FAMILY PHYSICIAN: Alex Posada ATTENDING PHYSICIAN: Gilberto Caldwell 5. Amlodipine 2.5 mg p.o. q. day. 6. Lovenox 40 mg q. day. 7. Pantoprazole 40 mg q. day. 8. Nystatin under right breast. 9. Seroquel 200 mg at bedtime. 10. Metoprolol tartrate 25 mg b.i.d. 11. Insulin detemir 20 units at bedtime. 12. Enalapril 5 mg b.i.d. 13. Metformin 1000 mg b.i.d. 14. Sliding-scale insulin. 15. Tramadol. 16. Magnesium hydroxide. 17. Alprazolam. 18. Bisacodyl. 19. Tylenol. 20. Diphenhydramine. 21. Docusate. 22. Ondansetron. FAMILY HISTORY: Positive for myocardial infarction in father who at the age of 53. Mother had diabetes. SOCIAL HISTORY: The patient is a half pack smoker for the last 25 years. 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 No alcohol or drug abuse. ALLERGIES: THE PATIENT IS ALLERGIC TO WELLBUTRIN AND CHANTIX. PHYSICAL EXAMINATION: VITAL SIGNS: Today blood pressure of 130/78, 62, afebrile, 16, and saturating 95% on room air. GENERAL: In no acute distress. Alert and oriented x3. HEENT: Head; atraumatic and normocephalic. Eyes; nonicteric. No pallor. Oropharynx; dry mucous membranes. NECK: Left CEA surgical incision dressed. No thyromegaly or lymphadenopathy. CARDIOVASCULAR: S1 and S2. No murmurs, gallops, or rubs. LUNGS: Clear to auscultation bilaterally. ABDOMEN: Soft, nontender, nondistended. Bowel sounds present. EXTREMITIES: No clubbing, cyanosis, or edema. NEUROLOGIC: Right-sided facial droop noted. Right hip and lower extremity power 4/5 as compared to 5/5 in the left upper and lower extremity. MUSCULOSKELETAL: No muscle tenderness noted. LYMPHATICS: No lymphangitis or lymphadenopathy noted. PATIENT'S NAME: NIKA CLIFTON [facility] AGE: 51 Y [address] ROOM: [address] [address] LOCATION: GPCU ADMIT DATE: 01/01/2017 Consultation DISCHARGE DATE: 01/02/2017 FAMILY PHYSICIAN: Alex Posada ATTENDING PHYSICIAN: Gilberto Caldwell LABORATORY DATA: Blood glucose level from the chemical panel today was 164, BUN 24, creatinine 0.8, sodium 140, and rest of the BMP was normal with a GFR of 81. ASSESSMENT AND PLAN: 1. Type 1 diabetes, insulin dependent, very brittle. We will continue the home dose of detemir 25 in the morning and 20 at nighttime insulin scale. 2. Acute ischemic stroke. Continue her on aspirin and Plavix per Vascular. 3. Carotid artery endarterectomy, postoperative day #1. 4. History of coronary artery disease, status post drug-eluting stents. Continue beta paris, statin, as well as aspirin and Plavix. 5. Fibromyalgia. 6. Tobaccoism. 7. Deep venous thrombosis prophylaxis has been restarted as well. 8. Diet as tolerated; diabetic diet. We will follow. MD IRINEO BEYER/taj /[id number] d: 01/02/17 0129 t: 01/11/17 0901, CONSULTATION REPORT
[2017-01-02 07:01] LABS: BASOPHIL # 0.1 K/uL (0.0-0.2); BASOPHIL % 0.7 %; EOSINOPHIL # 0.2 K/uL (0.0-0.5); EOSINOPHIL % 2.6 %; HEMOGLOBIN 11.4 g/dL (10.0-15.0); IMMATURE GRANULOCYTE % 0.1 %; LYMPHOCYTE # 1.9 K/uL (0.8-4.0); LYMPHOCYTE % 27.8 %; MCH 29.8 pg (27.0-34.0); MCHC 32.6 gm/dL (32.0-36.5); MCV 91.6 fl (83.0-98.0); MONOCYTE # 0.8 K/uL (0.0-1.0); MONOCYTE % 11.5 %; MPV 10.3 fl (9.4-12.4); NEUTROPHIL % 57.3 %; NRBC % 0 /100WBC (0-0.00); PLATELET COUNT 245 K/uL (150-450); RBC 3.82 M/uL (3.50-5.50); RDW-CV 13.8 % (11.9-14.6); WBC 6.9 K/uL (4.0-11.0)
[2017-01-02 07:10] LABS: ANION GAP 10.9 (10.0-19.0); CALCIUM 7.8 mg/dL (8.5-10.5); CREATININE 0.8 mg/dL (0.5-1.1); POTASSIUM 3.9 mMol/L (3.7-5.1)
[2017-01-02] MEDS ORDERED: LEVEMIR100 UNIT/1 SUB-Q (13:34)
[2017-01-02] MEDS ORDERED: NICODERM CQ1 EAC1 TRANS (13:40)
[2017-01-02] MEDS ORDERED: NYSTATIN1 EAC1 TOP (13:42)
[2017-01-02] MEDS ORDERED: PROTONIX40 MG PO (13:43)
[2017-01-02] MEDS ORDERED: NORCO 5-325 TA1 EACH PO (13:44)
== END 2017-01-02 14:00 | disposition disaster alternative care site (69) | DRG 37 ==
LOC: GPCU 01-01 09:47
PROVIDERS: ADMIT Surgery Vascular Surgery
DX: I65.22 Occlusion and stenosis of left carotid artery (principal); I63.9 Cerebral infarction, unspecified; Z79.4 Long term (current) use of insulin; E10.9 Type 1 diabetes mellitus without complications; M79.7 Fibromyalgia
CPT/HCPCS: J0690; J1644; J1650; J2001; J2270; J2405; J2550; J2720; J3010; J3480; J7030